=== PATIENT | male | born 1960 | race African-American/Black ===

== ENCOUNTER 2018-05-14 10:26 | Emergency (ER) | payer SELFPAY | END 2018-05-14 11:32 | disposition home or self-care (01) | LOC: ERS 10:26 | DX: J02.9 Acute pharyngitis, unspecified (principal); E78.5 Hyperlipidemia, unspecified; I10 Essential (primary) hypertension; Z79.899 Other long term (current) drug therapy | CPT/HCPCS: 87081; 87430; 99283 ==

== ENCOUNTER 2018-05-24 13:08 | Emergency (ER) | payer SELFPAY | END 2018-05-24 14:08 | disposition home or self-care (01) | LOC: ERS 13:08 | DX: J20.9 Acute bronchitis, unspecified (principal); E78.5 Hyperlipidemia, unspecified; I10 Essential (primary) hypertension; Z79.899 Other long term (current) drug therapy | CPT/HCPCS: 99283 ==